=== PATIENT | male | born 1960 | race African-American/Black ===

== ENCOUNTER 2019-04-11 15:16 | Emergency (ER) | payer MEDICAID ==
--- NOTE | 2019-04-11 15:32 | ER Document Report ---
ED Medical Screen (RME) - General Chief Complaint: Wrist Pain Stated Complaint: LEFT WRIST PAIN Time Seen by Provider: 04/11/19 15:30 Primary Care Provider: NED FAGAN MD [Primary Care Provider] - Follow up as needed Mode of Arrival: Ambulatory Information source: Patient Notes: 58-year-old male presented to ED for injury to his left wrist. He states he was moving some furniture and a dresser fell on his wrist yesterday. He states he has not seen a provider yet he is come to the emergency room today for the first time. He is alert oriented respirations regular nonlabored speaking in full sentences. States she smokes 1/2 pack a day, beer weekly, denies illicit drugs. States she has never broken this wrist in the past. I have greeted and performed a rapid initial assessment of this patient. A comprehensive ED assessment and evaluation of the patient, analysis of test results and completion of medical decision making process will be conducted by an additional ED providers. - Related Data Allergies/Adverse Reactions: No Known Allergies Allergy (Unverified 01/06/11 08:33) Physical Exam - Vital signs Vitals: Temp Pulse Resp BP Pulse Ox 97.4 F 57 L 12 140/75 H 100 04/11/19 15:20 04/11/19 15:20 04/11/19 15:20 04/11/19 15:20 04/11/19 15:20 Course - Vital Signs Vital signs: Temp Pulse Resp BP Pulse Ox 97.4 F 57 L 12 140/75 H 100 04/11/19 15:20 04/11/19 15:20 04/11/19 15:20 04/11/19 15:20 04/11/19 15:20 Doctor's Discharge - Discharge Referrals: NED FAGAN MD [Primary Care Provider] - Follow up as needed
--- NOTE | 2019-04-11 17:21 | RADIOLOGY REPORT (SQ) ---
EXAM DESCRIPTION: WRIST LEFT 3 VIEWS COMPLETED DATE/TIME: 04/11/2019 5:10 pm REASON FOR STUDY: Pain and injury to eft wrist COMPARISON: None. NUMBER OF VIEWS: Three views. TECHNIQUE: AP, lateral, and oblique radiographic images acquired of the left wrist. LIMITATIONS: None. FINDINGS: MINERALIZATION: Normal. BONES: Slightly displaced oblique fracture mid-distal shaft ulna. A 3 mm well corticated ossific de nsity dorsal soft tissues of the distal forearm, may represent a bone fragment. SOFT TISSUES: Soft tissue swelling. No foreign body. OTHER: No other significant finding. IMPRESSION: 1. Slightly displaced oblique fracture mid-distal shaft of the ulna. Soft tissue swell ing. 2. A well corticated small os ossific densities dorsal soft tissues distal forearm may represent a b one fragment. TECHNICAL DOCUMENTATION: JOB ID: [id number] [employer]- All Rights Reserved Reading location - IP/workstation name: [email or web address]
--- NOTE | 2019-04-11 18:25 | ER Document Report ---
HPI - HPI Time Seen by Provider: 04/11/19 15:30 Pain Level: 5 Notes: Patient is a 58-year-old male with a history of COPD who presents complaining of left forearm pain status post injury yesterday. Patient states that he was moving a dresser when it fell on his arm. He has had pain and swelling since then. Denies drug allergies. No other concerns or complaints. Pain does not radiate. Denies any headache, fever, head injury, neck pain, URI, sore throat, chest pain, palpitations, syncope, cough, shortness of breath, wheeze, dyspnea, abdominal pain, nausea/vomiting/diarrhea, urinary retention, dysuria, hematuria, loss of control of bowel or bladder, numbness/tingling, muscle paralysis, or rash. - ROS Systems Reviewed and Negative: Yes All other systems reviewed and negative Past Medical History - General Information source: Patient - Social History Smoking Status: Current Every Day Smoker Chew tobacco use (# tins/day): No Frequency of alcohol use: Occasional Drug Abuse: None Family History: Reviewed & Not Pertinent Patient has suicidal ideation: No Patient has homicidal ideation: No Vertical Provider Document - CONSTITUTIONAL Agree With Documented VS: Yes Notes: PHYSICAL EXAMINATION: GENERAL: Well-appearing, well-nourished and in no acute distress. HEAD: Atraumatic, normocephalic. NECK: Normal range of motion, supple without lymphadenopathy. No midline tenderness. LUNGS: Breath sounds clear to auscultation bilaterally and equal. No wheezes rales or rhonchi. HEART: Regular rate and rhythm without murmurs, rubs, gallops. Musculoskeletal: Lt hand/wrist: + mild swelling mid to distal left forearm with tenderness associated. N/V intact distal. FROM to passive/active at the wrist/elbow. Strength 5+/5. No scaphoid tenderness. No other tenderness to the hand/elbow. Extremities: No cyanosis, clubbing, or edema b/l. Peripheral pulses 2+. Cap illary refill less than 3 seconds. NEUROLOGICAL: Normal speech, normal gait. Normal sensory, motor exams otherwise unremarkable PSYCH: Normal mood, normal affect. SKIN: see above. No rash - INFECTION CONTROL TRAVEL OUTSIDE OF THE [place] IN LAST 30 DAYS: No Course - Re-evaluation Re-evalutation: 04/11/19 Patient is an afebrile, well-hydrated, 58-year-old male who presents to the ED with a fracture to the mid/distal Lt ulna. Vitals are acceptable without any significant tachycardia, tachypnea, or hypoxia. PE is otherwise unremarkable for any neurovascular compromise, obvious tendon/ligament rupture, open fracture, septic joint. See XR result. Splint applied today. Tylenol given PO. Patient is nontoxic-appearing. No other labs or imaging warranted at this time based on H&P. Conservative measures otherwise for symptoms. Recheck with your PCM in 3-5 days. Call orthopedics Sunday to schedule an appointment for further evaluation and management. Return to the ED with any worsening/concerning symptoms otherwise as reviewed in discharge. Patient is in agreement. - Vital Signs Vital signs: Temp Pulse Resp BP Pulse Ox 97.4 F 57 L 12 140/75 H 100 04/11/19 15:20 04/11/19 15:20 04/11/19 15:20 04/11/19 15:20 04/11/19 15:20 Procedures - Immobilization Left Arm Pre-Proc Neuro Vasc Exam: Normal Immobilizer type: Volar splint Performed by: PCT Post-Proc Neuro Vasc Exam: Normal, Changed from pre-exam Discharge - Discharge Clinical Impression: Left ulnar fracture Qualifiers: Encounter type: initial encounter Ulna location: shaft Fracture type: closed Fracture morphology: unspecified fracture morphology Qualified Code(s): S52.202A - Unspecified fracture of shaft of left ulna, initial encounter for closed fracture Condition: Stable Disposition: HOME, SELF-CARE Additional Instructions: Rest, Ice, Compression, Elevation Use splint as directed Tylenol/ibuprofen as needed F/u with your PCP in 3-5 days for a recheck Call orthopedics Sunday to schedule an appointment for further evaluation and management Return to the ED with any worsening symptoms and/or development of fever, headache, chest pain, palpitations, syncope, shortness of breath, trouble breathing, abdominal pain, n/v/d, muscle weakness/paralysis, numbness/tingling, swelling, redness, or other worsening symptoms that are concerning to you. Forms: Elevated Blood Pressure Referrals: NED FAGAN MD [Primary Care Provider] - Follow up as needed LOVELY KEY JR, DO [ACTIVE PROVISIONAL STAFF] - Follow up in 3-5 days
[2019-04-11] MEDS ORDERED: HYDROCODONE/ACETAMINOPHEN 5-325 MG (6 TAB/ER DISP) PO PRN (18:26)
[2019-04-11] MEDS ORDERED: ACETAMINOPHEN 325 MG TABLET PO ONE (18:54)
[2019-04-11 19:00] VITALS: BP 124/62
== END 2019-04-11 19:10 | disposition home or self-care (01) ==
LOC: ER 15:16
DX: S52.232A Displaced oblique fracture of shaft of left ulna, initial encounter for closed fracture (principal); W20.8XXA Other cause of strike by thrown, projected or falling object, initial encounter; Y93.89 Activity, other specified; F17.200 Nicotine dependence, unspecified, uncomplicated
CPT/HCPCS: 99283

== ENCOUNTER 2019-04-14 13:56 | Emergency (ER) | payer MEDICAID ==
--- NOTE | 2019-04-14 14:23 | ER Document Report ---
ED Medical Screen (RME) - General Chief Complaint: Wrist Injury Stated Complaint: WOUND CHECK Time Seen by Provider: 04/14/19 14:18 Primary Care Provider: NED FAGAN MD [Primary Care Provider] - Follow up as needed Mode of Arrival: Ambulatory Information source: Patient Notes: 58-year-old male presented to ED for recheck of his fractured wrist. He states he was seen on Sunday for a fractured wrist and was told to follow-up with orthopedics. He states he went to orthopedics and they told him they could not see him if he did not have insurance.. He states it is still extremely painful and he does not go back to [place] until until next month. I have spoken to Zander Marinelli RN town planner. I have greeted and performed a rapid initial assessment of this patient. A comprehensive ED assessment and evaluation of the patient, analysis of test results and completion of medical decision making process will be conducted by an additional ED providers. TRAVEL OUTSIDE OF THE U.S[place] IN LAST 30 DAYS: No - Related Data Allergies/Adverse Reactions: No Known Allergies Allergy (Verified 04/14/19 14:18) Past Medical History - Social History Chew tobacco use (# tins/day): No Frequency of alcohol use: None Drug Abuse: None Physical Exam - Vital signs Vitals: Temp Pulse Resp BP Pulse Ox 97.8 F 99 16 134/85 H 97 04/14/19 14:04 04/14/19 14:04 04/14/19 14:04 04/14/19 14:04 04/14/19 14:04 Course - Vital Signs Vital signs: Temp Pulse Resp BP Pulse Ox 97.8 F 99 16 134/85 H 97 04/14/19 14:04 04/14/19 14:04 04/14/19 14:04 04/14/19 14:04 04/14/19 14:04 Doctor's Discharge - Discharge Referrals: NED FAGAN MD [Primary Care Provider] - Follow up as needed
--- NOTE | 2019-04-14 15:21 | ER Document Report ---
HPI - HPI Patient complains to provider of: pain in right wrist Time Seen by Provider: 04/14/19 14:18 Onset: Last week Quality of pain: Achy, Throbbing Pain Level: 5 Context: 58-year-old male presented to ED for complaint recheck of a fractured wrist. He states he was seen on Sunday for fractured wrist and was told to follow-up with orthopedics. He states he went to orthopedics and they told him they cannot seem unless he paid up front because he does not have insurance feet. He states his wrist is extremely painful and he does not plan to go back to [place] where his Medicaid is until next month. I did have Zander Marinelli RN discharge plan to come and speak with him. The only way to get to orthopedics is to pay upfront. We did give him the option of pain upfront or return to [place] to have follow-up. A disc of the x-ray was provided to the patient. He was treated with a [place] dispense pack and he stated he would find a way back to [place] tomorrow. Associated Symptoms: Other - Left wrist pain Exacerbated by: Denies Relieved by: Denies Similar symptoms previously: Yes Recently seen / treated by doctor: Yes - CONSTITUTIONAL Constitutional: DENIES: Fever, Chills - EENT EENT: DENIES: Sore Throat, Ear Pain, Nasal Drainage-Clear, Nasal Drainage- Purulent, Congestion, Eye problems - NEURO Neurology: DENIES: Headache, Weakness, Vision blurred, Dizzinesss / Vertigo - CARDIOVASCULAR Cardiovascular: DENIES: Chest pain - RESPIRATORY Respiratory: DENIES: Trouble Breathing, Coughing - GASTROINTESTINAL Gastrointestinal: DENIES: Abdominal Pain, Nausea, Patient vomiting, Diarrhea, Constipation, Black / Bloody Stools - URINARY Urinary: DENIES: Dysuria, Urgency, Frequency - REPRODUCTIVE Reproductive: DENIES: : - MUSCULOSKELETAL Musculoskeletal: REPORTS: Extremity pain - Left wrist pain fractured ulna - DERM Skin Color: Normal Skin Problems: None Past Medical History - General Information source: Patient - Social History Smoking Status: Current Every Day Smoker Cigarette use (# per day): Yes Chew tobacco use (# tins/day): No Smoking Education Provided: Yes - 4 minutes Frequency of alcohol use: Occasional Drug Abuse: None 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 Lives with: Family Family History: Reviewed & Not Pertinent Patient has suicidal ideation: No Patient has homicidal ideation: No - Past Medical History Cardiac Medical History: Reports: None Pulmonary Medical History: Reports: Hx COPD EENT Medical History: Reports: None Neurological Medical History: Reports: None Endocrine Medical History: Reports: None Renal/ Medical History: Reports: None Malignancy Medical History: Reports None GI Medical History: Reports: None Musculoskeletal Medical History: Reports Hx Musculoskeletal Trauma Skin Medical History: Reports None Psychiatric Medical History: Reports: None Traumatic Medical History: Reports: Hx Fractures - wrist Infectious Medical History: Reports: None Surgical Hx: Negative Past Surgical History: Reports: None Vertical Provider Document - CONSTITUTIONAL Agree With Documented VS: Yes Exam Limitations: No Limitations General Appearance: WD/WN, No Apparent Distress - INFECTION CONTROL TRAVEL OUTSIDE OF THE [place] IN LAST 30 DAYS: No - HEENT HEENT: Atraumatic, Normal ENT Exam, Normocephalic, PERRLA - RESPIRATORY Respiratory: Breath Sounds Normal, No Respiratory Distress, Chest Non-Tender - CARDIOVASCULAR Cardiovascular: Regular Rate, Regular Rhythm - MUSCULOSKELETAL/EXTREMETIES Musculoskeletal/Extremeties: Tender - Left wrist splint is in place has full range of motion of his fingers pulses are present, No Edema - NEURO Level of Consciousness: Awake, Alert, Appropriate Course - Re-evaluation Re-evalutation: 04/14/19 21:42 Patient was given a AGELON ? dispense pack for the pain. He was given instructions on elevation ice of the injury. He was instructed to keep his splint on as instructed. He was given a disc of his x-ray to his wrist. He was instructed to follow-up with orthopedics in his home [facility] if he could not pay for the orthopedics in [place]. Patient stated he would go home tomorrow or the next day and see an scientific specialist. - Vital Signs Vital signs: Temp Pulse Resp BP Pulse Ox 97.8 F 99 16 134/85 H 97 04/14/19 14:04 04/14/19 14:04 04/14/19 14:04 04/14/19 14:04 04/14/19 14:04 Discharge - Discharge Clinical Impression: Left ulnar fracture Qualifiers: Encounter type: subsequent encounter Ulna location: distal Fracture type: closed Fracture morphology: unspecified fracture morphology Fracture healing: with routine healing Qualified Code(s): S52.602D - Unspecified fracture of lower end of left ulna, subsequent encounter for closed fracture with routine healing Condition: Stable Disposition: HOME, SELF-CARE Additional Instructions: He was seen today for continued pain in your left wrist. You were treated for a fractured distal ulnar last week. You followed up with orthopedics as you were instructed but they would not see you without a co-pay upfront. I have given you a disc of your x-ray to follow-up with your orthopedic in [place]. I have given you a 6 pack of Atka to use until you can return to [place] for your pain. Fracture You have a fracture. The typical broken bone requires only protection and sufficient time for healing. "Setting" is necessary only if the bones are crooked or out of position. The physician will re-assess you periodically to make certain that the bone heals without complications. It's important that you follow the instructions given you. The initial treatment is immobilization, elevation of the injury, and cold packs. Not all fractures require a cast. Depending on the location and type of fracture, immobilization may consist of a splint, cast, sling, bulky dressing, or simply rest. The length of time required for healing depends on the location and type of fracture, and on the age of the patient. The treatment plan the physician has outlined for you is customized to your fracture and health condition. Call the doctor or return at once if pain becomes severe, or if severe swelling or numbness develop. Splint Pending Casting Your injury can't be casted until the swelling has subsided. Therefore, a temporary splint has been placed to protect the injury. Full use of an injured area is not possible in a splint. You should follow the doctor's instructions concerning rest, ice, and elevation of the injury. Never do anything which causes pain under the splint. Keep the splint on ALL THE TIME until you return for casting. If there is unexpected severe pain, or numbness, discoloration, or swelling beyond the splint, you should return at once. ICE & ELEVATION: Apply ice packs frequently against the painful area. Many different schedules are recommended, such as "20 minutes on, 20 minutes off" or "one hour ice, two hours rest." If you need to work, you may need to go longer between ice treatments. You should plan to have the area ice packed AT LEAST one-fourth of the time. The ice should be applied over the wrap, tape, or splint, or over a layer of cloth -- not directly against the skin. Some ice bags have a built-in cloth and can be put directly on the skin. Your injured part should be elevated as much as possible over the next 48 hours. Try to keep the injury above the level of the heart. Avoid use of the injured area. Elevation and rest will decrease the swelling. USE OF [id number] IBUPROFEN: Ibuprofen (Advil, Nuprin, Medipren, Motrin IB) is a medication for fever and pain control. In addition, it has anti- inflammatory effects which may be beneficial, especially in the treatment of injuries. It's best to take ibuprofen with food. Persons with ulcer disease or allergy to aspirin should notify their physician of this before taking ibuprofen. Ibuprofen can be given every four to six hours, for a total of four doses daily. Age Pain or fever dose Antiinflammatory dose 6-8 yr 200 mg (1 tab) 200 mg (1 tab) 9-11 yr 200 mg (1 tab) 200-400 mg (1-2 tab) 11-14 yr 200-400 mg (1-2 tab) 400 mg (2 tab) 15-adult 400 mg (2 tab) 600 mg (3 tab) ORAL NARCOTIC MEDICATION: You have been given a code dispense pack n for pain control. This medication is a narcotic. It's best taken with food, as nausea can result if taken on an empty stomach. Don't operate machinery or drive within six hours of taking this medication. Do not combine this medicine with alcohol, or with any medication which can cause sedation (such as cold tablets or sleeping pills) unless you get permission from the physician. Narcotics tend to cause constipation. If possible, drink plenty of fluids and eat a diet high in fiber and fruits. Please be aware that prescription narcotics also have the potential for abuse. People become addicted to these medications because of the general sense of wellbeing that they induce. This feeling along with a significant reduction in tension, anxiety, and aggression provides a stimulating seductive quality to these drugs. Once your pain is under control, we encourage you to discard your unused narcotics. FOLLOW-UP CARE: If you have been referred to a physician for follow-up care, call the physicians office for an appointment as you were instructed or within the next two days. If you experience worsening or a significant change in your symptoms, notify the physician immediately or return to the Emergency Department at any time for re-evaluation. Forms: Elevated Blood Pressure, Smoking Cessation Education Referrals: NED FAGAN MD [ACTIVE STAFF] - Follow up as needed
[2019-04-14] MEDS ORDERED: HYDROCODONE/ACETAMINOPHEN 5-325 MG (6 TAB/ER DISP) PO PRN (15:22)
[2019-04-14 15:26] VITALS: BP 135/88
== END 2019-04-14 15:30 | disposition home or self-care (01) ==
LOC: ER 13:56
DX: S52.602D Unspecified fracture of lower end of left ulna, subsequent encounter for closed fracture with routine healing (principal); W20.8XXD Other cause of strike by thrown, projected or falling object, subsequent encounter; F17.210 Nicotine dependence, cigarettes, uncomplicated; Z71.6 Tobacco abuse counseling; J44.9 Chronic obstructive pulmonary disease, unspecified
CPT/HCPCS: 90471; 99283